=== PATIENT | female | born 1955 | race Caucasian/White ===

== ENCOUNTER 2024-04-11 08:00 | Outpatient (CLI) | payer MEDICARE | END 2024-04-11 23:59 | disposition home or self-care (01) | LOC: LAB.S 08:00 | PROVIDERS: ATTEND Emergency Medicine | DX: R05.9 Cough, unspecified (principal) ==

== ENCOUNTER 2024-04-11 08:00 | Outpatient (CLI) | payer MEDICARE ==
--- NOTE | 2024-04-12 14:14 | XRAY Report ---
PROCEDURE: Chest 2V INDICATIONS: COUGH TECHNIQUE: 2 views of the chest were acquired. COMPARISON: None. FINDINGS: Surgical changes and devices: None. Lungs and pleura: No pleural effusions or pneumothorax. Lungs are clear. Mediastinum: Mediastinal contours appear normal. Heart size is normal. Bones and chest wall: No suspicious bony lesions. Overlying soft tissues appear unremarkable. IMPRESSION: No acute cardiopulmonary process. Reviewed by: Janene Scott MD on 04/12/2024 2:13 PM PDT Approved by: Janene Scott MD on 04/12/2024 2:13 PM PDT Station ID: [id number]
== END 2024-04-11 23:59 | disposition home or self-care (01) ==
LOC: DI.S 08:00
PROVIDERS: ATTEND Emergency Medicine
DX: R05.9 Cough, unspecified (principal)